=== PATIENT | female | born 2000 | race Two or more races ===

== ENCOUNTER → 2019-02-27 14:42 | Outpatient (CLI) | payer OTHER | END | disposition home or self-care (01) | LOC: LAB 14:42 | DX: J11.1 Influenza due to unidentified influenza virus with other respiratory manifestations (principal) ==

== ENCOUNTER 2019-04-24 14:22 | Outpatient (CLI) | payer OTHER | END 2019-04-24 14:34 | disposition home or self-care (01) | LOC: LAB 14:22 | DX: R05 Cough (principal); J11.1 Influenza due to unidentified influenza virus with other respiratory manifestations ==

== ENCOUNTER 2019-04-28 17:29 | Outpatient (CLI) | payer OTHER | END 2019-04-28 17:34 | disposition home or self-care (01) | LOC: LAB 17:29 | DX: J11.1 Influenza due to unidentified influenza virus with other respiratory manifestations (principal); R05 Cough ==

== ENCOUNTER 2019-07-30 09:29 | Outpatient (CLI) | payer OTHER | END 2019-07-30 09:57 | disposition home or self-care (01) | LOC: LAB 09:29 | PROVIDERS: ATTEND General Practice | DX: Z13.6 Encounter for screening for cardiovascular disorders (principal); M25.541 Pain in joints of right hand; M25.542 Pain in joints of left hand; M79.671 Pain in right foot; R60.0 Localized edema; Z00.00 Encounter for general adult medical examination without abnormal findings; M79.672 Pain in left foot ==

== ENCOUNTER 2019-09-01 13:15 | Outpatient (CLI) | payer OTHER | END 2019-09-01 13:21 | disposition home or self-care (01) | LOC: RAD 13:15 | DX: M54.12 Radiculopathy, cervical region (principal); M99.01 Segmental and somatic dysfunction of cervical region; M99.02 Segmental and somatic dysfunction of thoracic region; M54.5 Low back pain; M99.03 Segmental and somatic dysfunction of lumbar region; M99.05 Segmental and somatic dysfunction of pelvic region ==